=== PATIENT | female | born 1995 | race Caucasian/White ===

== ENCOUNTER 2016-11-16 09:43 | Emergency (ER) | payer MEDICAID ==
[2016-11-16] MEDS ORDERED: ONDANSETRON 4 MG VIAL ONE (11:36)
[2016-11-16] MEDS ORDERED: SODIUM CHLORIDE 0.9% 1,000 ML ONE (11:36)
[2016-11-16] MEDS ORDERED: KETOROLAC 30 MG/ML VIAL ONE (12:17)
== END 2016-11-16 14:46 | disposition home or self-care (01) ==
LOC: ER 09:43
CPT/HCPCS: 36415; 74176; 80053; 81001; 83690; 84703; 85025; 87088; 96361; 96374; 96375